=== PATIENT | female | born 1945 | race Caucasian/White ===

== ENCOUNTER → 2019-03-28 09:47 | Outpatient (CLI) | payer MEDICARE, BC ==
[2010-07-08 13:50] VITALS: BMI 36.4
--- NOTE | 2019-04-02 15:03 | EC ---
PATIENT:JENNIFER SEO DATE OF SERVICE: 03/28/19 SEX: F MEDICAL RECORD: [id number] DATE OF : 45 LOCATION:[facility] AGE OF PATIENT: 73 ADMISSION DATE: 03/28/19 REFERRING PHYSICIAN: INTERPRETING PHYSICIAN: [id number] EDGE MD ECHOCARDIOGRAM REPORT ECHO CHARGES 4 ECHO COMPLETE Date: 03/28/19 CLINICAL DIAGNOSIS: ANGINA/MURMUR/MR/TR/LBBB ECHOCARDIOGRAPHIC MEASUREMENTS (adult normal given) AC root (d.<3.7cm) 3.0 cm LV Septum d (<1.2 cm> 1.5 cm Valve Excursion 1.9 cm LV Septum (systole) 1.9 cm Left Atria (s.<4.0cm> 4.2 cm LVPW d(<1.2cm) 1.2 cm RV (d.<2.3cm) 2.6 cm LVPW (sytole) 1.8 cm LV diastole(<5.6CM) 5.1 cm MV E-F(>70mm/sec) cm LV systole 3.3 cm LVOT Diameter 1.7 cm MV exc.(>10mm) cm Est.ejection fraction (50-75%) % DOPPLER: LVIT cm/sec A 86.0 cm/sec E 57.0 cm/sec LA cm/sec RVSP 30.0 mmHg LVOT 79.0 cm/sec AOP1/2T m/s Asc. Ao 142 cm/sec RVOT 59.0 cm/sec RA cm/sec PA 90.0 cm/sec AV Gradient Peak 8.1 mmHg AV Mean 3.9 mmHg AV Area 1.1 cm MV Gradient Peak 3.7 mmHg MV Mean 1.2 mmHg MV Area cm COMMENTS: OP - HC Employment Recruiter: 1 MENDEZ HINESOE Conference Manager: 3 Dr. Reeder TAPE# PACS Pericardial Effusion N DATE OF SERVICE: Adequate 2D, color flow, spectral Doppler, and M-Mode. Mild LVH. LV internal dimensions are normal. There is global hypokinesis, more marked septal hypokinesis. Overall, LV function reduced at 40% to 45%. Aortic valve sclerosis without stenosis by Doppler interrogation. Left atrium is minimally dilated at 4.2 cm. Mitral valve shows no prolapse. Mild MR. Right-sided chambers are grossly normal. Mild TR. TRANSINT:[id number] Voice Confirmation ID: [id number] DOCUMENT ID: [id number] ECHOCARDIOGRAM REPORT [id number] JENNIFER SEO,TRUPTI Hernandez MD at 1503 CC: [id number] DICTATION DATE: 03/29/19 1308 SPECTROGRAPH OPERATOR: 03/29/19 1501 DEP CLI 03/28/19 [place] [id number]
== END | disposition home or self-care (01) ==
LOC: D.HCCARDIO 09:47
PROVIDERS: ATTEND Internal Medicine Interventional Cardiology
DX: R01.1 Cardiac murmur, unspecified (principal)